=== PATIENT | male | born 1955 | race Caucasian/White ===

== ENCOUNTER 2019-06-14 04:44 | Inpatient (IN) ==
--- NOTE | 2019-05-26 16:14 | PAT Medication Instructions ---
Medication Instructions Date of Service May 26, 2019 Home Medications cholecalciferol (vitamin D3) [Vitamin D3] 5,000 unit PO DAILY meloxicam 15 mg PO QDL multivitamin 1 cap PO DAILY omeprazole 20 mg PO QDL ASK your surgeon for instructions meloxicam 15 mg PO QDL DO NOT take the morning of surgery cholecalciferol (vitamin D3) [Vitamin D3] 5,000 unit PO DAILY multivitamin 1 cap PO DAILY Take morning of surgery With a small sip of water, OTHERWISE NOTHING TO EAT OR DRINK AFTER MIDNIGHT: omeprazole 20 mg PO QDL Other Notes If you have any questions please call us at [phone] or [phone] or [phone] or [phone]
--- NOTE | 2019-05-27 13:30 | Anesthesiology Consultation ---
Date of Service May 27, 2019 Assessment & Plan (1) Encounter for pre-operative examination: Chart Review Chart Review: Pending: Refer to Additional Notes / Consult section (CXR, labs) and Patient seen in Pre Admission Testing Consults Requested none History Surgery Operation Date: 06/14/19 07:00 Proposed Procedures p Left Anterior Total Hip Arthroplasty - Jose Nicolas DO Height/Weight Height: 6 ft Weight: 117.5 kg Allergies Allergy/AdvReac Type Severity Reaction Status Date / Time No Known Allergies Allergy Verified 05/19/19 10:47 Medications Home Medications Medication Instructions Recorded Confirmed Last Taken cholecalciferol (vitamin D3) 5,000 unit PO DAILY 05/19/19 05/19/19 Unknown [Vitamin D3] meloxicam 15 mg PO QDL 05/19/19 05/19/19 Unknown multivitamin 1 cap PO DAILY 05/19/19 05/19/19 Unknown omeprazole 20 mg PO QDL 05/19/19 05/19/19 Unknown Past Medical History Medical History Acid reflux Borderline high cholesterol History of ulcerative colitis Snores Past Family History Family History Mother Family history of diabetes mellitus (DM) Past Surgical History Surgical History History of colonoscopy History of eye surgery EYE SOCKET REPLACED, R Social History Smoking Status: Never smoker Do You Dip or Chew Tobacco: No (HX OF , NONE CURRENT) Alcohol type: beer Hx Substance Use: No substance use type: does not use Physical Exam Vital Signs Last Vital Signs Temp 36.7 C 05/27/19 12:49 Pulse 73 05/27/19 12:49 Resp 18 05/27/19 12:49 BP 144/85 H 05/27/19 12:49 Pulse Ox 95 05/27/19 12:49 Testing Electrocardiogram Date: 05/27/19 Findings: + NSR @ (74)
--- NOTE | 2019-05-27 13:45 | XRay Report ---
XR chest Pre-admission PA/Lat HISTORY: Preop. COMPARISON: None. FINDINGS: The lungs are clear. Cardiac silhouette is normal in size. No pleural effusions. No pneumot horax. IMPRESSION: No acute process. Electronically signed by: Raciel Vázquez M.D. 05/27/2019 1:43 PM
[2019-05-27 13:53] LABS: Basophils # (auto) 0.04 K/uL (0-0.2); Basophils % (auto) 0.8 %; Eosinophils # (auto) 0.15 K/uL (0-0.5); Hematocrit (blood only) 42.3 % (42-52); Hemoglobin 14.4 g/dL (14.0-18.0); Immature Granulocytes # (auto) 0.01 K/uL (0.00-0.02); Immature Granulocytes % (auto) 0.2 %; Lymphocytes # (auto) 1.46 K/uL (1.2-3.4); Lymphocytes % (auto) 29.3 %; Mean Corpuscular Hemoglobin 29.8 pg (25-34); Mean Corpuscular Volume 87.4 fL (80-100); Mean Platelet Volume 10.6 fL (7.4-10.4); Monocytes # (auto) 0.41 K/uL (0.11-0.59); Monocytes % (auto) 8.2 %; Neutrophils # (auto) 2.92 K/uL (1.4-6.5); Neutrophils % (auto) 58.5 %; Platelet Count 200 K/uL (130-400); RDW Coefficient of Variation 13.5 % (11.5-14.5); RDW Standard Deviation 42.9 fL (36.4-46.3); Red Blood Count 4.84 M/uL (4.7-6.1); White Blood Count 4.99 K/uL (4.8-10.8)
[2019-05-27 14:10] LABS: Partial Thromboplastin Ratio 0.9; Partial Thromboplastin Time 25.4 Seconds (21.0-31.0); Prothrombin Time 10.3 Seconds (9.0-12.0)
[2019-05-27 14:15] LABS: Appearance Urine Clear (Clear); Bilirubin Urine Negative (Negative); Blood Urine Negative (Negative); Color Urine Dark Yellow; Glucose Urine UA Negative (Negative); Ketones Urine Trace (Negative); Leukocyte Esterase Urine Negative (Negative); Nitrite Urine Negative (Negative); Protein Urine Negative (Negative); Specific Gravity Urine 1.027 (1.000-1.030); Urobilinogen Urine Negative (Negative); pH Urine 6.5 (4.5-7.5)
[2019-05-27 14:20] LABS: Estimated Average Glucose 157 mg/dl; Hemoglobin A1C 7.1 % (4.5-5.6)
[2019-05-27 14:30] LABS: Albumin Level 4.1 gm/dl (3.4-5.0); BUN Creatinine Ratio 24.5 (10-20); Calcium 8.9 mg/dl (8.5-10.1); Creatinine Clr Calc Pharmacy 96.8 ml/min; Est GFR (African American) 87.4; Est GFR (Non-African American) 75.4; Potassium 4.1 mmol/L (3.5-5.1)
--- NOTE | 2019-05-28 12:46 | Anesthesiology Consultation ---
Date of Service May 28, 2019 Assessment & Plan Chart Review Chart Review: Acceptable Risk for Surgery Consults Requested none History Surgery Operation Date: 06/14/19 07:00 Proposed Procedures p Left Anterior Total Hip Arthroplasty - Jose Nicolas DO Height/Weight Height: 6 ft Weight: 117.5 kg Allergies Allergy/AdvReac Type Severity Reaction Status Date / Time No Known Allergies Allergy Verified 05/19/19 10:47 Medications Home Medications Medication Instructions Recorded Confirmed Last Taken cholecalciferol (vitamin D3) 5,000 unit PO DAILY 05/19/19 05/19/19 Unknown [Vitamin D3] meloxicam 15 mg PO QDL 05/19/19 05/19/19 Unknown multivitamin 1 cap PO DAILY 05/19/19 05/19/19 Unknown omeprazole 20 mg PO QDL 05/19/19 05/19/19 Unknown Past Medical History Medical History Acid reflux Borderline high cholesterol History of ulcerative colitis Snores Past Family History Family History Mother Family history of diabetes mellitus (DM) Past Surgical History Surgical History History of colonoscopy History of eye surgery EYE SOCKET REPLACED, R Social History Smoking Status: Never smoker Do You Dip or Chew Tobacco: No (HX OF , NONE CURRENT) Alcohol type: beer Hx Substance Use: No substance use type: does not use Physical Exam Vital Signs Last Vital Signs Temp 36.7 C 05/27/19 12:49 Pulse 73 05/27/19 12:49 Resp 18 05/27/19 12:49 BP 144/85 H 05/27/19 12:49 Pulse Ox 95 05/27/19 12:49 Testing Laboratory Results 05/27/19 12:57 05/27/19 12:57 PT 10.3 Seconds (9.0-12.0) 05/27/19 12:57 INR 1.0 (0.9-1.1) 05/27/19 12:57 APTT 25.4 Seconds (21.0-31.0) 05/27/19 12:57 Hemoglobin A1c 7.1 % (4.5-5.6) H 05/27/19 12:57 Urine Color Dark Yellow 05/27/19 12:57 Urine Appearance Clear (Clear) 05/27/19 12:57 Urine pH 6.5 (4.5-7.5) 05/27/19 12:57 Ur Specific [place] 1.027 (1.000-1.030) 05/27/19 12:57 Urine Protein Negative (Negative) 05/27/19 12:57 Urine Glucose (UA) Negative (Negative) 05/27/19 12:57 Urine Ketones Trace (Negative) H 05/27/19 12:57 Urine Nitrite Negative (Negative) 05/27/19 12:57 Ur Leukocyte Esterase Negative (Negative) 05/27/19 12:57 Blood Type A Positive 05/27/19 12:57 Antibody Screen NEGATIVE 05/27/19 12:57 05/27/19 12:57 Urine Culture - Preliminary Urine,Clean Catch Pin-point growth present, reincubating. Electrocardiogram Date: 05/27/19 Findings: + NSR @ (74/min) Chest X-Ray Date: 05/27/19 Findings: + NAD
--- NOTE | 2019-06-13 10:20 | History & Physical Report ---
Date of Service June 13, 2019 Assessment & Plan (1) Degenerative joint disease of left hip: I have indicated the patient for left anterior total hip replacement. The risks, benefits and complications of surgery were explained to the patient which include but not limited to infection, acute blood loss, DVT/PE, injury to nerves, vessels, bone, soft tissue, arthrofibrosis, chronic pain, failure of the prosthesis, hip dislocation, leg length discrepancy, need for additional surgery, cardiac and pulmonary events and . The patient wished to proceed with surgery and informed consent was obtained at this time. We will plan for ASA 81mg BID post-operatively for DVT prophylaxis. Upon discharge the patient will be discharged home with home health services. Appropriate clearances by PCP were obtained. History of Present Illness Chief Complaint: Left hip pain/djd Primary Care Provider: Juarez Gates MD The patient is a 63 year old male who presents with complaints of severe left hip pain and DJD. The patient has failed outpatient conservative treatments to this point which included NSAIDs, IA hip injections, home exercise/walking program. The patient's pain and limited function have progressed to the point where they severely hinder their activities of daily living and they no longer tolerate exercise programs. They are requesting to proceed with total hip replacement surgery. Allergies Allergy/AdvReac Type Severity Reaction Status Date / Time No Known Allergies Allergy Verified 06/14/19 05:39 Home Medications Home Medications Medication Instructions Recorded Confirmed Type cholecalciferol (vitamin D3) 5,000 unit PO DAILY 05/19/19 06/14/19 History [Vitamin D3] meloxicam [Mobic] 15 mg PO QDL 05/19/19 06/14/19 History multivitamin 1 cap PO DAILY 05/19/19 06/14/19 History omeprazole 20 mg PO QDL 05/19/19 06/14/19 History Past Med/Surg History Medical History Acid reflux Borderline high cholesterol History of ulcerative colitis Snores Surgical History History of colonoscopy History of eye surgery EYE SOCKET REPLACED, R Family History Mother Family history of diabetes mellitus (DM) Social History Preferred Language: Chadian Communication Ability: Effective Pit Inspector Required: No Beliefs That Will Affect Care: None Current Living Situation: Spouse Other Information That Helps Us Care for You: No Feels Safe at Home: Yes Smoking Status: Never smoker Do You Dip or Chew Tobacco: No (HX OF , NONE CURRENT) ; Hx Substance Use: No Review of Systems Review of Systems: All systems reviewed & are unremarkable except as noted in HPI & below Constitutional: as per Subjective / HPI Physical Exam Physical Exam: LLE NVSI +EHL/FHL/TA/GS SILT grossly, +2 DP pulse, compartments soft NT, limited painful ROM of the hip, antalgic gait. Constitutional: WD/WN, vitals as above Eyes: PERRL, conjunctivae normal, anicteric sclerae ENMT: external ear and nose normal, oropharynx normal Neck: trachea midline, no thyromegaly Respiratory: normal respiratory effort, lungs clear to auscultation Cardiovascular: RRR, no murmur, no edema Gastrointestinal (Abdomen): normal bowel sounds, soft, nontender, no hepatosplenomegaly Musculoskeletal: no cyanosis or clubbing, extremities motor strength 5/5 Skin: no rashes, warm and dry Neurologic: patellar DTR's 2+ bilat, sensation intact Psychiatric: A+Ox3, euthymic affect Lymphatic: no cervical or axillary lymphadenopathy Results & Data Diagnostic Findings Multiple views of the hip demonstrates severe DJD with complete loss of the joint space. +osteophytes, +sclerosis, +subchondral cysts.
[2019-06-14] MEDS: LR 500ML BOLUS, THEN 15ML/HR IV SCH (05:45)
[2019-06-14] MEDS ORDERED: dexAMETHasone 4 MG TAB PO SCH (06:00)
[2019-06-14] MEDS ORDERED: FAMOTIDINE 20 MG TAB PO SCH (06:00)
[2019-06-14] MEDS ORDERED: METOCLOPRAMIDE HCL 10 MG TABLET PO SCH (06:00)
[2019-06-14] MEDS ORDERED: CEFAZOLIN 2000MG 2,000 MG/15 ML SYR IV SCH (06:00)
[2019-06-14] MEDS ORDERED: ROPIVACAINE 0.5% HCL/PF 150 MG, BUPIVACAINE 0.5% MPF 30 ML, EPINEPHrine 30MG/30ML (OR U... INSTIL SCH (06:00)
[2019-06-14] MEDS ORDERED: CeleBREX 200 MG CAP PO SCH (06:00)
[2019-06-14] MEDS ORDERED: TRANEXAMIC ACID 1,000 MG **IV Pre-op IV SCH (06:00)
[2019-06-14] MEDS ORDERED: LR 15ML/HR IV SCH (06:00)
[2019-06-14] MEDS ORDERED: ACETAMINOPHEN 500 MG TAB PO SCH (06:00)
[2019-06-14] MEDS ORDERED: TRANEXAMIC ACID 1,000 MG **IV Intra-op IV SCH (06:30)
[2019-06-14] MEDS ORDERED: BUPIVACAINE 0.5 % 5 MG/1 ML PF 10ML VIAL ONE (06:33)
[2019-06-14] MEDS ORDERED: fentaNYL citrate 100 MCG/2 ML VIAL ONE (06:33)
[2019-06-14] MEDS ORDERED: MIDAZOLAM HCL 1 MG/ML 2ML VIAL ONE ×2 (06:33→08:04)
[2019-06-14] MEDS ORDERED: BACITRACIN INJ 50,000 UNIT VIAL ONE (06:41)
[2019-06-14] MEDS ORDERED: ORTHO JOINT ANESTHETIC ONE (06:41)
--- NOTE | 2019-06-14 06:51 | History & Physical Bridge Note ---
Date of Service June 14, 2019 History & Physical Bridge Note I have examined the patient, reviewed the History & Physical and in the interval since the performance of the History & Physical I have noted the following changes of clinical significance: no changes noted
[2019-06-14] MEDS ORDERED: PROPOFOL IV EMULSION 10 MG/ML 20 ML VIAL IV ONE ×3 (07:18→08:33)
[2019-06-14] MEDS ORDERED: ePHEDrine sulfate 50 MG/ML SYR ONE (07:18)
[2019-06-14] MEDS ORDERED: KETAMINE HCL INJ 50 MG/ML 10 ML VIAL ONE ×2 (08:03→08:32)
[2019-06-14] MEDS ORDERED: ONDANSETRON INJ 2 MG/ML 2 ML VIAL ONE (08:25)
--- NOTE | 2019-06-14 08:52 | Post Operative Brief Note ---
Immediate Post Op Note v1 Date of Surgery June 14, 2019 Pre & Post Diagnosis Operation Date: 06/14/19 07:00 Pre-Op Diagnosis: Unilateral Primary Osteoarthritis, Left Hip Post-Op Diagnosis: Unilateral Primary Osteoarthritis, Left Hip I identified the patient and participated in the time-out.: Yes Procedure Operation Date: 06/14/19 07:00 Actual Procedures p Left Anterior Total Hip Arthroplasty(Left) - Jose Nicolas DO Surgeon Jose Nicolas DO Coater [employer] Paper Simba Lindsay Estimated Blood Loss 225 Findings Consistent with Post-Op Diagnosis Fluids 800 cc LR Specimens femoral head Anesthesia Type Spinal MAC Complications none Disposition Disposition: Recovery Room Overlapping Procedure I was present for: the critical portions of procedure. I was immediately available: during the entire case. Back up surgeon: was not required during procedure.
--- NOTE | 2019-06-14 09:20 | Operative Report ---
Post Operative Report Pre & Post Diagnosis Operation Date: 06/14/19 07:00 Pre-Op Diagnosis: Unilateral Primary Osteoarthritis, Left Hip Post-Op Diagnosis: Unilateral Primary Osteoarthritis, Left Hip I identified the patient and participated in the time-out.: Yes Procedure Operation Date: 06/14/19 07:00 Actual Procedures p Left Anterior Total Hip Arthroplasty(Left) - Jose Nicolas DO Surgeon Jose Nicolas DO Stave Bolt Equalizer Simba Lindsay Estimated Blood Loss 225 Findings Consistent with Post-Op Diagnosis Fluids 800 cc LR Specimens femoral head Anesthesia Type Spinal MAC Complications none Disposition Disposition: Recovery Room Indications The patient is a 63-year-old male who presents with severe progressive left hip DJD who has failed outpatient conservative treatments. I indicated the patient for a anterior total hip replacement and the risks and benefits were explained in detail which include but not limited to infection, bleeding, blood clot, damage to surrounding bone, nerves, vessels, soft tissue, hip dislocation, failure of the prosthesis, leg length discrepancy, need for additional surgery and . The patient agreed to proceed with replacement of the hip and informed consent was obtained. Appropriate clearances were obtained. Description of Procedure COMPONENTS USED: [place] & NephFliqqology hip system: Acetabulum size 58, femur size 8 high offset, femoral head 36+4, liner 3658, acetabular screw 25 mm x 1. DESCRIPTION OF PROCEDURE: Following satisfactory spinal anesthesia, the patient was placed supine on the OR table. The right leg was placed in the well leg silvestre and the left leg in the traction device. The left leg was prepared with ChloraPrep and draped sterilely. A surgical timeout was performed, patient identified and site soham verified. Appropriate antibiotics were given. A standard anterior approach in the interval between the sartorius and tensor muscles was performed. Dissection was carried down through subcutaneous tissues. Electrocautery was utilized for hemostasis. Circumflex femoral vessels were identified, tied and ligated. The anterior capsular fat pad was removed and the capsulotomy was performed revealing the arthritic femoral neck and head. A femoral neck cut was made with reciprocating saw and the bone fragments removed. The acetabular self-retraining retractor was placed. Acetabular reaming was completed under fluoroscopic guidance, a 58 shell was impacted into an anatomic position and secured with a dome screw. Local anesthetic was placed and following irrigation, the polyethylene liner was placed. The femur was placed into position of external rotation, extension and adduction. Femoral canal was prepared up to the size 8 high offset. Trial reduction with a +4 neck length head showed good soft tissue tension, leg lengths restored, and good fit and fill of the proximal canal using fluoroscopic landmarks. The hip was dislocated. The trial component was removed. The final implant was placed. The hip was irrigated with sterile saline solution and reduced. A Betadine soak was performed. After 3 minutes, the hip was once more irrigated with copious sterile saline solution with bacitracin. Indu-incisional soft tissue was injected utilizing [place] [employer] which includes a combination of Ropivicaine 0.5% 150mg, Bupivicaine 0.5%/Epinephrine 1:200,000 30ml, Toradol 30mg, Dexamethasone 4mg, Ketamine 10mg, Clonidine 100mcg and NSS 30ml solution. The capsule was then closed with 1-0 Vicryl interrupted figure of eight sutures. The fascia was closed with a running suture of #1 Vicryl, the subcutaneous tissues with 2-0 Vicryl and the skin was closed with jermaine. A dry sterile dressing was applied which included Praven[place] incisional VAC. The patient tolerated the procedure well and was transported to PACU in stable condition. Due to the complex nature of the procedure, the entire surgery was performed with the operational assistance of Simba Lindsay PA-C. The research assistant member, under direct supervision, was involved in the actual performance of all aspects of the surgical procedure including patient positioning, hemostasis, tissue retraction, instrument management and wound closure. I attest to the content of the Intraoperative Record and any orders documented therein. Any exceptions are noted below.
[2019-06-14] MEDS ORDERED: NovoLIN-R INSULIN PER UNIT CHARGE ONE (09:29)
--- NOTE | 2019-06-14 09:30 | Fluoroscopy Report ---
FL hip LT 1V HISTORY: 63 years-old Male LEFT ANTERIOR HP left hip total joint arthroplasty COMPARISON: None available TECHNIQUE: 2 spot fluoroscopic images of the left hip were obtained utilizing 1 minute and 4.8 second s fluoroscopy time FINDINGS: Left hip total joint arthroplasty appears to be in satisfactory positioning. No acute fracture identi fied. Right hip osteoarthritis is partially imaged. IMPRESSION: Fluoroscopic assistance as above. Please see operative report for further details. The above report was generated using voice recognition software. It may contain grammatical, syntax o r spelling errors. Electronically signed by: Jose Rankin M.D. 06/14/2019 9:29 AM
[2019-06-14] MEDS ORDERED: ATROPINE SULFATE 0.1 MG/ML 10ML SYR IV PRN (09:34)
[2019-06-14] MEDS ORDERED: ePHEDrine sulfate 50 MG/ML AMP IV PRN (09:34)
[2019-06-14] MEDS ORDERED: NovoLIN-R INSULIN PER UNIT CHARGE IV STA (09:34)
--- NOTE | 2019-06-14 10:19 | XRay Report ---
XR hip 1V LT w pelvis CLINICAL HISTORY: IN PACU - A/P PELVIS and LATERAL HIP COMPARISON: None. DISCUSSION: Anatomic alignment posttotal left hip arthroplasty. Could contact between prosthetic and underlying bone. Expected postoperative soft tissue change. IMPRESSION: Anatomic alignment posttotal left hip arthroplasty. The above report was generated using voice recognition software. It may contain grammatical, syntax or spelling errors. Electronically signed by: Chino Donnelly M.D. 06/14/2019 10:18 AM
--- NOTE | 2019-06-14 10:20 | Anesthesiology Progress Note ---
Date of Service June 14, 2019 Anesthesia Post Procedure Vital Signs Vital Signs: Temp Pulse Pulse Resp BP Pulse Ox 06/14/19 10:06 84 16 106/62 96 06/14/19 09:55 84 16 99/56 L 96 06/14/19 09:45 79 12 108/66 100 06/14/19 09:35 78 11 L 125/66 100 06/14/19 09:25 73 19 118/60 100 06/14/19 09:18 36.2 C L 81 17 98/63 L 95 06/14/19 05:15 36.6 C 74 18 156/94 H 95 Transfer of Care Handoff Completed per policy Notes Mental Status: alert / awake / arousable Patient Amnestic to Procedure: Yes Nausea / Vomiting: adequately controlled Pain: adequately controlled Airway Patency, RR, SpO2: stable & adequate BP & HR: stable & adequate Hydration State: stable & adequate Neuraxial Anesthesia: was administered and sensory block is resolving Anesthetic Complications: no major complications apparent
[2019-06-14] MEDS ORDERED: OXYCODONE HCL IR 5 MG TAB (IMMEDIATE RELEASE) PO PRN (10:43)
[2019-06-14] MEDS ORDERED: ONDANSETRON INJ 2 MG/ML 2 ML VIAL IV PRN (10:43)
[2019-06-14] MEDS ORDERED: bisacodyL 10 MG SUPP PR PRN (10:43)
[2019-06-14] MEDS ORDERED: HYDROmorphone INJ 0.5 MG/0.5 ML SYR IV PRN (10:43)
[2019-06-14] MEDS ORDERED: SODIUM CHLORIDE 0.9% 1000ML 1,000 ML IV SCH (10:43)
[2019-06-14] MEDS ORDERED: MAGNESIUM HYDROXIDE SUSP 30 ML UDC PO PRN (10:43)
[2019-06-14] MEDS ORDERED: NALOXONE HCL 0.4 MG/1 ML VIAL/CARP IV PRN (10:43)
[2019-06-14] MEDS ORDERED: METOCLOPRAMIDE HCL INJ 5 MG/ML 2 ML VIAL IV PRN (10:43)
[2019-06-14] MEDS ORDERED: PHARMACY GLYCEMIC MGMT CONSULT PRN (11:13)
[2019-06-14] MEDS ORDERED: GLUCOSE 10 TABS/TUBE PO PRN (11:15)
[2019-06-14] MEDS ORDERED: CARBOHYDRATES FOR HYPOGLYCEMIA PO PRN (11:15)
[2019-06-14] MEDS ORDERED: DEXTROSE 50% 50 ML SYRINGE IV PRN (11:15)
[2019-06-14] MEDS ORDERED: GLUCOSE 40% GEL 15 GM TUBE PO PRN (11:15)
[2019-06-14] MEDS ORDERED: GLUCAGON FOR INJ 1 MG VIAL IM PRN (11:15)
--- NOTE | 2019-06-14 11:26 | Pharmacy Report ---
Glycemic Control Consultation - Date of Service June 14, 2019 - Scope Scope: Glycemic Pharmacist consulted for glycemic control and to write orders per [facility] inpatient glycemic control protocol - Objective Weight: 116.3 kg Accuchecks BSG (last 24hrs): 06/14/19 06/14/19 09:22 10:02 POC Glucose 221 H 203 H HbA1c: Hemoglobin A1c 7.1 % (4.5-5.6) H 05/27/19 12:57 - Recent Pertinent Medications Outpatient Anti-diabetic Regimen: * N/A {diet controlled?} Risk Factors for Insulin Resistance: * Steroids * Recent Surgery * Diet - Assessment & Plan Assessment & Plan: ASSESSMENT: * 63yo male with diabetes per A1c. * HbA1c of 6.5% or greater indicates "diagnosis of diabetes" --> ADA recommendation is to "Treat Diabetes" * Pt with post op hyperglycemia most likely related to stress of surgery and Dexamethasone received pre-op * Aggressive therapy needed until effects of dexamethasone diminished (likely 24-48hrs) * NPH insulin is used to counteract the hyperglycemic effect of once time steroids. The rationale for this approach is that the pharmacodynamics profile of NPH, mirrors the pharmacodynamics of once daily steroids * The dose of NPH given is dependent on the steroid dose given * For doses of prednisone 40mg/day or above --> NPH dose should be 0.4 units/kg (will use slightly lower dose based on elevated BMI) * NPH dosing above is given in addition to patients basal insulin needs * Typically, patients will also need rapid-acting insulin with meals * Goal is to maintain BSGs <200 mg/dl (ideally <150 mg/dl) to prevent post op complications PLAN FOR INPATIENT GLYCEMIC CONTROL: * Steroid induced hyperglycemia insulin * NPH 30 units SQ x 1 dose * Bolus insulin * NovoLog per scale ACHS or Q6hrs while NPO * Goal Range: Low 110 mg/dL - High 140 mg/dL * Correction Factor: 20 mg/dL/unit * Nutritional / Prandial insulin per carb ratio of 1 unit per 7 grams CHO consumed * Please note that the plan above was derived based on current level of insulin resistance and hospital stress. These recommendations are appropriate for inpatient admission only. Plan of care upon discharge will need to be reassessed to avoid potential outpatient hypo/hyperglycemia. Thank you.
[2019-06-14] MEDS ORDERED: NovoLIN-N (NPH) PER UNIT CHARGE SQ ONE (11:30)
[2019-06-14] MEDS: KETOROLAC TROMETHAMINE 15 MG/ML VIAL IV SCH ×2 (12:25→17:36)
[2019-06-14] MEDS: PANTOprazole 40 MG TAB PO SCH (13:29)
[2019-06-14] MEDS: ACETAMINOPHEN 500 MG TAB PO SCH ×2 (13:32→20:49)
[2019-06-14] MEDS: INSULIN ASPART 100 UNITS/ML 3 ML PEN SC SCH ×3 (13:33→20:50)
--- NOTE | 2019-06-14 14:43 | Orthopedic Progress Note ---
Date of Service June 14, 2019 Assessment & Plan (1) Degenerative joint disease of left hip: Status post left anterior TAMRA -Ancef x24 -DVT prophylaxis: SCDs, teds, ASA 81 mg twice daily -Weight-bear as tolerates left lower extremity -PT/OT -Postoperative x-ray to be straight well aligned well fixed orthopedic prosthesis without evidence of fracture dislocation -A.m. labs -DC planning Subjective Post Operative Progress Note Patient seen sitting up in bed, comfortable, denies complaints, pain well controlled, no acute issues. Denies fevers, chills, nausea, vomiting, shortness of breath and chest pain. Review of Systems Review of Systems: All systems reviewed & are unremarkable except as noted in HPI & below Constitutional: as per Subjective / HPI Physical Exam Physical Exam: LLE NVSI +EHL/FHL/TA/GS SILT grossly, +2 DP pulse, compartments soft NT, dressing cdi. Constitutional: WD/WN, vitals as above Results & Data Vital Signs (Past 12 Hours) Vital Signs Temp Pulse Pulse Resp BP Pulse Ox 06/14/19 13:37 89 18 118/54 L 95 06/14/19 12:40 92 H 18 128/78 92 06/14/19 11:24 78 18 119/75 95 06/14/19 10:56 81 18 117/69 92 06/14/19 10:25 36.5 C 82 16 109/68 96 06/14/19 10:06 84 16 106/62 96 06/14/19 09:55 84 16 99/56 L 96 06/14/19 09:45 79 12 108/66 100 06/14/19 09:35 78 11 L 125/66 100 06/14/19 09:25 73 19 118/60 100 06/14/19 09:18 36.2 C L 81 17 98/63 L 95 06/14/19 05:15 36.6 C 74 18 156/94 H 95
[2019-06-14] MEDS: CEFAZOLIN 2000MG 2,000 MG/15 ML SYR IV SCH ×2 (15:08→22:10)
--- NOTE | 2019-06-14 16:43 | Hospitalist Consultation ---
Date of Consultation June 14, 2019 Assessment & Plan (1) Degenerative joint disease of left hip: POD #0 left total hip arthroplasty with Dr. Duran Pain control per ortho team Further surgical management per ortho (2) Elevated hemoglobin A1c: Patient told that he was pre-diabetic by PCP Will treat with insulin and with Novolog SSI Pharmacy consulted for glycemic control SSI reviewed and agree with parameters Out patient follow up with PCP (3) GERD (gastroesophageal reflux disease): No current complaints Famotidine while inpatient Discharge on home dose of omeprazole Thank you for including us in the care of this patient Please refer to Dr. Belle's addendum for further recommendations. History of Present Illness Attending Physician: Jose Nicolas DO History of Present Illness Attending: Dr. Dakota Belle This is a 63 yo male that is POD#0 S/P left hip arthroplasty. Random glucose was elevated and surgical team acquired HgB A1c which was mildly elevated at 7.1. Pharmacy was consulted for glycemic control and the hospitalist team was consulted for medical management. Patient is seen in bed post operatively and is in no distress. He denies history of diabetes but states that his PCP says that he was pre-diabetic. Patient has had some weight gain and poor diet over the past year secondary to sedentary activity due to hip pain. He is hopeful that with the hip replacement that he can be more active and focus on weight loss and diet. The patient states that his mother was diabetic but has no other significant family history. He denies vision changes, neuropathy, renal failure, change in bowel habits, polydipsia, hematuria. He has no other acute complaints. The patient has a history of DJD and GERD. He denies any other significant [facility] condition. He has no pulmonary, cardiac, or thrombotic disease. Allergies Allergy/AdvReac Type Severity Reaction Status Date / Time No Known Allergies Allergy Verified 06/14/19 05:39 Home Medications Home Medications Medication Instructions Recorded Confirmed Type cholecalciferol (vitamin D3) 5,000 unit PO DAILY 05/19/19 06/14/19 History [Vitamin D3] meloxicam [Mobic] 15 mg PO QDL 05/19/19 06/14/19 History multivitamin 1 cap PO DAILY 05/19/19 06/14/19 History omeprazole 20 mg PO QDL 05/19/19 06/14/19 History Patient History Medical History Acid reflux Borderline high cholesterol History of ulcerative colitis Snores Surgical History History of colonoscopy History of eye surgery EYE SOCKET REPLACED, R Family History Mother Family history of diabetes mellitus (DM) Social History Preferred Language: Sami Communication Ability: Effective [employer] Required: No Beliefs That Will Affect Care: None Current Living Situation: Spouse Other Information That Helps Us Care for You: No Feels Safe at Home: Yes Smoking Status: Never smoker Do You Dip or Chew Tobacco: No (HX OF , NONE CURRENT) ; Hx Substance Use: No Review of Systems Review of Systems: All systems reviewed & are unremarkable except as noted in HPI & below Physical Exam Constitutional: WD/WN, vitals as above no acute distress No acute distress. Pleasant Eyes: PERRL, conjunctivae normal, anicteric sclerae ENMT: Nose: no septum abnormality and no epistaxis Mouth: no oral mucosal abnormality Neck: trachea midline, no thyromegaly No appreciation of stridor or carotid bruits Respiratory: normal respiratory effort; no respiratory distress Auscultation: lungs clear to auscultation bilaterally Cardiovascular: Rate/Rhythm: regular rate and regular rhythm Heart Sounds: no murmur Musculoskeletal: Extremities: extremities normal to inspection Dressing dry and in place to surgical site Skin: no rashes, warm and dry Neurologic: A&OX3. Results & Data Vital Signs (Past 12 Hours) Vital Signs Temp Pulse Pulse Resp BP Pulse Ox 06/14/19 15:47 36.9 C 87 18 117/69 94 06/14/19 13:37 89 18 118/54 L 95 06/14/19 12:40 92 H 18 128/78 92 06/14/19 11:24 78 18 119/75 95 06/14/19 10:56 81 18 117/69 92 06/14/19 10:25 36.5 C 82 16 109/68 96 06/14/19 10:06 84 16 106/62 96 06/14/19 09:55 84 16 99/56 L 96 06/14/19 09:45 79 12 108/66 100 06/14/19 09:35 78 11 L 125/66 100 06/14/19 09:25 73 19 118/60 100 06/14/19 09:18 36.2 C L 81 17 98/63 L 95 06/14/19 05:15 36.6 C 74 18 156/94 H 95 Laboratory Results 05/27/19 12:57 05/27/19 12:57 Diagnostic Findings XR hip 1V LT w pelvis CLINICAL HISTORY: IN PACU - A/P PELVIS and LATERAL HIP COMPARISON: None. DISCUSSION: Anatomic alignment posttotal left hip arthroplasty. Could contact between prosthetic and underlying bone. Expected postoperative soft tissue change. IMPRESSION: Anatomic alignment posttotal left hip arthroplasty. Electronically signed by: Chino Donnelly M.D. 06/14/2019 10:18 AM PG Care Time/CCT Total # of Minutes Spent Total Time Spent with Patient: Total time spent is greater than 50% in coordination of care (as documented) at patient's floor/unit and/or counseling patient: 40
[2019-06-14] MEDS: DOCUSATE SODIUM 100 MG CAP PO SCH (20:48)
[2019-06-14] MEDS ORDERED: ASPIRIN 81 MG ECTAB PO SCH (21:00)
[2019-06-14] MEDS ORDERED: SENNA 8.6 MG TAB PO SCH (21:00)
[2019-06-15] MEDS: KETOROLAC TROMETHAMINE 15 MG/ML VIAL IV SCH ×3 (00:07→11:37)
[2019-06-15] MEDS: INSULIN ASPART 100 UNITS/ML 3 ML PEN SC SCH ×4 (00:15→12:40)
[2019-06-15] MEDS: LR 500ML BOLUS, THEN 15ML/HR IV SCH (03:30)
[2019-06-15 05:13] LABS: Basophils # (auto) 0.01 K/uL (0-0.2); Basophils % (auto) 0.1 %; Eosinophils # (auto) 0.01 K/uL (0-0.5); Eosinophils % (auto) 0.1 %; Hematocrit (blood only) 34.8 % (42-52); Hemoglobin 11.9 g/dL (14.0-18.0); Immature Granulocytes # (auto) 0.02 K/uL (0.00-0.02); Immature Granulocytes % (auto) 0.2 %; Lymphocytes # (auto) 1.64 K/uL (1.2-3.4); Lymphocytes % (auto) 14.7 %; Mean Corpuscular Hemoglobin 29.8 pg (25-34); Mean Corpuscular Hgb Conc 34.2 g/dL (32-36); Mean Corpuscular Volume 87.2 fL (80-100); Monocytes # (auto) 1.21 K/uL (0.11-0.59); Monocytes % (auto) 10.9 %; Neutrophils # (auto) 8.26 K/uL (1.4-6.5); Platelet Count 209 K/uL (130-400); RDW Coefficient of Variation 13.2 % (11.5-14.5); RDW Standard Deviation 42.3 fL (36.4-46.3); Red Blood Count 3.99 M/uL (4.7-6.1); White Blood Count 11.15 K/uL (4.8-10.8)
[2019-06-15 05:40] LABS: BUN Creatinine Ratio 30.5 (10-20); Calcium 8.5 mg/dl (8.5-10.1); Creatinine Clr Calc Pharmacy 108.2 ml/min; Est GFR (African American) 102.3; Est GFR (Non-African American) 88.3; Potassium 3.8 mmol/L (3.5-5.1)
[2019-06-15] MEDS: ACETAMINOPHEN 500 MG TAB PO SCH ×2 (06:14→14:00)
[2019-06-15] MEDS: PANTOprazole 40 MG TAB PO SCH (08:43)
[2019-06-15] MEDS: DOCUSATE SODIUM 100 MG CAP PO SCH (08:43)
[2019-06-15] MEDS ORDERED: MULTIVITAMIN TAB PO SCH (09:00)
--- NOTE | 2019-06-15 10:45 | Orthopedic Progress Note ---
Date of Service June 15, 2019 Assessment & Plan (1) Degenerative joint disease of left hip: Status post left anterior TAMRA POD#1 -Ancef x24 -DVT prophylaxis: SCDs, teds, ASA 81 mg twice daily -Weight-bear as tolerates left lower extremity -PT/OT -Postoperative x-ray to be straight well aligned well fixed orthopedic prosthesis without evidence of fracture dislocation -A.m. labs - hgb 11.9 -DC planning Subjective Post Operative Progress Note Patient seen ambulating in room, comfortable, denies complaints, pain well controlled, no acute issues. Denies fevers, chills, nausea, vomiting, shortness of breath and chest pain. Review of Systems Review of Systems: All systems reviewed & are unremarkable except as noted in HPI & below Constitutional: as per Subjective / HPI Physical Exam Physical Exam: LLE NVSI +EHL/FHL/TA/GS SILT grossly, +2 DP pulse, compartments soft NT, dressing cdi. Constitutional: WD/WN, vitals as above Results & Data Vital Signs (Past 12 Hours) Vital Signs Temp Pulse Resp BP Pulse Ox 06/15/19 07:15 36.7 C 71 18 122/75 94 06/15/19 03:35 36.6 C 75 18 128/75 96 06/14/19 23:20 36.6 C 75 18 123/71 97 Laboratory Results 06/15/19 06/15/19 06/15/19 Range/Units 07:57 04:48 04:48 WBC (4.8-10.8) K/uL RBC (4.7-6.1) M/uL Hgb (14.0-18.0) g/dL Hct (42-52) % MCV (80-100) fL MCH (25-34) pg MCHC (32-36) g/dL RDW Std Deviation (36.4-46.3) fL RDW Coeff of Lynnette (11.5-14.5) % Plt Count (130-400) K/uL MPV (7.4-10.4) fL Immature Gran % (Auto) % Neut % (Auto) % Lymph % (Auto) % [place] % (Auto) % Eos % (Auto) % Baso % (Auto) % Immature Gran # (Auto) (0.00-0.02) K/uL Neut # (Auto) (1.4-6.5) K/uL Lymph # (Auto) (1.2-3.4) K/uL [place] # (Auto) (0.11-0.59) K/uL Eos # (Auto) (0-0.5) K/uL Baso # (Auto) (0-0.2) K/uL Sodium 140 (136-145) mmol/L Potassium 3.8 (3.5-5.1) mmol/L Chloride 108 H (98-107) mmol/L Carbon Dioxide 27 (21-32) mmol/L Anion Gap 5.0 (3-11) BUN 28 H (7-18) mg/dl Creatinine 0.93 (0.6-1.4) mg/dl Est Cr Clr Drug Dosing 108.2 ml/min Est GFR ( Amer) 102.3 Est GFR (Non-Af Amer) 88.3 BUN/Creatinine Ratio 30.5 H (10-20) Glucose 124 H (70-99) mg/dl POC Glucose 153 H (70-99) Calcium 8.5 (8.5-10.1) mg/dl Hepatitis C Ab Screen Neg (Neg) 06/15/19 06/15/19 06/15/19 Range/Units 04:48 03:33 00:05 WBC 11.15 H (4.8-10.8) K/uL RBC 3.99 L (4.7-6.1) M/uL Hgb 11.9 L (14.0-18.0) g/dL Hct 34.8 L (42-52) % MCV 87.2 (80-100) fL MCH 29.8 (25-34) pg MCHC 34.2 (32-36) g/dL RDW Std Deviation 42.3 (36.4-46.3) fL RDW Coeff of Lynnette 13.2 (11.5-14.5) % Plt Count 209 (130-400) K/uL MPV 10.0 (7.4-10.4) fL Immature Gran % (Auto) 0.2 % Neut % (Auto) 74.0 % Lymph % (Auto) 14.7 % [place] % (Auto) 10.9 % Eos % (Auto) 0.1 % Baso % (Auto) 0.1 % Immature Gran # (Auto) 0.02 (0.00-0.02) K/uL Neut # (Auto) 8.26 H (1.4-6.5) K/uL Lymph # (Auto) 1.64 (1.2-3.4) K/uL [place] # (Auto) 1.21 H (0.11-0.59) K/uL Eos # (Auto) 0.01 (0-0.5) K/uL Baso # (Auto) 0.01 (0-0.2) K/uL Sodium (136-145) mmol/L Potassium (3.5-5.1) mmol/L Chloride (98-107) mmol/L Carbon Dioxide (21-32) mmol/L Anion Gap (3-11) BUN (7-18) mg/dl Creatinine (0.6-1.4) mg/dl Est Cr Clr Drug Dosing ml/min Est GFR ( Amer) Est GFR (Non-Af Amer) BUN/Creatinine Ratio (10-20) Glucose (70-99) mg/dl POC Glucose 123 H 154 H (70-99) Calcium (8.5-10.1) mg/dl Hepatitis C Ab Screen (Neg) 06/14/19 06/14/19 06/14/19 Range/Units 20:50 17:01 11:41 WBC (4.8-10.8) K/uL RBC (4.7-6.1) M/uL Hgb (14.0-18.0) g/dL Hct (42-52) % MCV (80-100) fL MCH (25-34) pg MCHC (32-36) g/dL RDW Std Deviation (36.4-46.3) fL RDW Coeff of Lynnette (11.5-14.5) % Plt Count (130-400) K/uL MPV (7.4-10.4) fL Immature Gran % (Auto) % Neut % (Auto) % Lymph % (Auto) % [place] % (Auto) % Eos % (Auto) % Baso % (Auto) % Immature Gran # (Auto) (0.00-0.02) K/uL Neut # (Auto) (1.4-6.5) K/uL Lymph # (Auto) (1.2-3.4) K/uL [place] # (Auto) (0.11-0.59) K/uL Eos # (Auto) (0-0.5) K/uL Baso # (Auto) (0-0.2) K/uL Sodium (136-145) mmol/L Potassium (3.5-5.1) mmol/L Chloride (98-107) mmol/L Carbon Dioxide (21-32) mmol/L Anion Gap (3-11) BUN (7-18) mg/dl Creatinine (0.6-1.4) mg/dl Est Cr Clr Drug Dosing ml/min Est GFR ( Amer) Est GFR (Non-Af Amer) BUN/Creatinine Ratio (10-20) Glucose (70-99) mg/dl POC Glucose 176 H 217 H 212 H (70-99) Calcium (8.5-10.1) mg/dl Hepatitis C Ab Screen (Neg)
[2019-06-15] MEDS ORDERED: ASPIRIN 81 MG ECTAB PO SCH (21:00)
[2019-06-16] MEDS ORDERED: CeleBREX 200 MG CAP PO SCH (21:00)
--- NOTE | 2019-06-16 23:28 | Discharge Summary ---
Date of Service June 16, 2019 Admission HPI Per Admitting Provider The patient is a 63 year old male who presents with complaints of severe left hip pain and DJD. The patient has failed outpatient conservative treatments to this point which included NSAIDs, IA hip injections, home exercise/walking program. The patient's pain and limited function have progressed to the point where they severely hinder their activities of daily living and they no longer tolerate exercise programs. They are requesting to proceed with total hip replacement surgery. Principal Diagnosis Left anterior total hip replacement Discharge Exam LLE NVSI +EHL/FHL/TA/GS SILT grossly, +2 DP pulse, compartments soft NT, dressing cdi. Constitutional WD/WN, vitals as above Discharge Data Allergies Allergy/AdvReac Type Severity Reaction Status Date / Time No Known Allergies Allergy Verified 06/14/19 05:39 Consultations 06/14/19 09:36 Consult Hospitalist Routine 06/15/19 08:00 Consult Case Management - Discharge Planning Routine Procedures Performed Operation Date: 06/14/19 07:00 Actual Procedures p Left Anterior Total Hip Arthroplasty(Left) - Jose Nicolas DO Ordered Studies 06/14/19 07:00 FL fluoroscopy <1hr Routine FL hip LT 1V Routine Hospital Course (1) Degenerative joint disease of left hip: The patient is a 63 -year-old male who presents with long standing history of severe left hip DJD and failed outpatient conservative treatments including NSAIDs, bracing, injections and home walking/exercise program. The patient's symptoms have progressed to the point where it has been difficult to perform even normal activities of daily living. I indicated the patient for a left anterior total hip arthroplasty, the risks, benefits and complications of the procedure include but not limited to infection, bleeding, damage to bone, nerves, vessels, surrounding soft tissue, may develop blood clots, loss of function, leg length discrepancy, dislocation, failure of the components, loosening of the components, the need for additional surgery and . The patient wished to proceed with surgery at this time and informed consent was obtained. Hospital Course: On 06/14/19 the patient was taken to the operating room, adequate anesthesia administered and underwent a left anterior total hip arthroplasty. The patient tolerated the procedure well and was taken to the PACU in stable condition. Post-operatively the patient was started on a DVT ppx medication and given appropriate IV antibiotics. Consults were placed to medical hospitalist, physical therapy, occupational therapy and case management. On POD#1, the patient did well overnight and their pain was well controlled. Labs were drawn and the Hgb was 11.9. The patient progressed well with PT. Dressings were changed at this time and the incision was clean, dry and intact. The patients hospital stay was relatively uneventful and they were deemed stable by the orthopedic team and consultants to be discharged home with on 06/15/19. Discharge Instructions: Upon discharge the patient may weight bear as tolerates through their operative extremity. They were instructed to keep the incision clean and dry at all times. The patient may shower but should not submerge the incision, avoid bathing, pools and hot tubes. The patient was given a script for pain medication and should take as instructed. The patient was given a script for DVT ppx ASA 81mg BID and should take as directed. The patient was instructed to not drive or travel for long distances until cleared to do so. If the patient develops any symptoms of fevers, chills, nausea, vomiting, increased redness, swelling, pain or drainage from the surgical site, they should notify the office and/or proceed to the nearest emergency room. The patient should follow up in 10-14 days after surgery for their routine post-operative follow-up appointment and should call the office to confirm the date and time. Status post left anterior TAMRA POD#1 -Ancef x24 -DVT prophylaxis: SCDs, teds, ASA 81 mg twice daily -Weight-bear as tolerates left lower extremity -PT/OT -Postoperative x-ray to be straight well aligned well fixed orthopedic prosthesis without evidence of fracture dislocation -A.m. labs - hgb 11.9 -DC planning Total Time Total Time Spent Total Time Spent (In Minutes): 30 minutes Total Time Includes: Examination of the Patient, Discharge Planning, Medication Reconciliation and Communication With Other Providers Discharge Plan Discharge Items Patient Disposition: Home - Self-Care Reason For Visit: Unilateral Primary Osteoarthritis, Left Hip Discharge Diagnosis: Left anterior total hip replacement Condition on Discharge: Good Activity: Per Instructions section Lifting: Wait until after follow-up appointment Bathing: Keep incision dry Bathing Comment: No bathing, pools or hot tubs Sexual Activity: Wait until after follow-up appointment Exercise/Sports: Wait until after follow-up appointment Driving/Machine Use: No driving Weightbearing: Full weightbearing Non-emergency contact: Primary Care Provider and Surgeon Call non-emergency contact if: you have any medication questions, your symptoms worsen, your pain is not controlled, your pain is worsening, your pain is unusual for you, your pain is concerning for you, you have a fever, your t emperature is above 101, your wound has increased redness, your wound has increased drainage and your wound pain has increased Follow-up/Referrals: Juarez Gates MD [Primary Care Provider] - Diet: Regular Addtl Attending Provider Instructions: ACTIVITY RECOMMENDATIONS: SELF CARE INSTRUCTIONS AFTER TOTAL HIP REPLACEMENT : Direct Anterior Approach Until the incision and soft tissues around your hip have healed, there is a possibility that the hip prosthesis could dislocate. A. Hip flexion ( Up & Down out of chair or steps ) may be difficult. This is normal. B. Numbness in front of the thigh is also normal for a few weeks. C. Use hand rails when walking on stairs. D. Wear low heeled shoes with non-slip soles. E. Be sure that your floors are free of things that could trip you - throw rugs, electrical cords, small objects. Avoid wet and waxed floors, especially with crutches and canes. F. Try to walk several times a day with rest periods between. G. Continue with all the exercises taught to you in the hospital. Again, make walking a part of your daily routine. SPECIAL CARE INSTRUCTIONS: VERY IMPORTANT TO READ AND REVIEW A. You may still be at risk for phlebitis and blood clots. 1. Wear surgical stockings (SEDRICK hose) for 2 weeks after surgery to improve circulation and reduce swelling. 2. Take Aspirin 81mg twice daily for 4 weeks or as directed by your doctor. This is your blood thinner. 3. High risk patients may be prescribed a stronger blood thinner if necessary. 4. If you are on Coumadin normally, your family doctor/operations support representative should monitor your blood work. Expect a phone call the day of or the day after bloodwork is drawn to adjust your dosage. B. You must take antibiotics before having dental work, bladder, bowel and other surgery. Your doctor will provide you with a permanent card to carry describing precautions. C. Call [facility] if you have a fever, redness or swelling around the incision, cloudy drainage from incision, or sudden increase in pain in your hip, not relieved by your regular pain medication. D. Please call the office at if you have any concerns or questions about your operation or recovery. * YOU MAY SHOWER, NO TUB BATHS UNTIL CLEARED BY YOUR DOCTOR. - Keep an extra close eye on the top portion of your incision. Be sure to keep clean & dry. * WEAR SEDRICK HOSE 20 HOURS PER DAY FOR 2 WEEKS. * YOU MAY PROGRESS FROM A WALKER, TO A CANE, TO INDEPENDENT AT YOUR OWN PACE. * MOST PATIENTS WILL HAVE HOME NURSING FOR THERAPY. IF YOU DECIDE TO DO OUTPATIENT PHYSICAL THERAPY, PLEASE SCHEDULE THIS 3 TIMES PER WEEK. *PREVENA incisional vac is a special dressing covering your incision. This dressing provides a sterile dry environment while you are healing. The dressing is to be left in place for 7 days post-operatively. Your home nurse or surgeon will remove. If you develop any redness or blisters or have any questions notify your surgeon immediately. FOLLOW UP VISIT: If appointment is not already scheduled: Please call [facility] to make a follow-up appointment for 2 weeks after your surgery at . Please follow up with your PCP within 1 week. Pending Studies at Discharge: No Stand-Alone Forms: My [facility] [place], Opioid Pain Management Medications and DC Order Prescriptions: New oxycodone 5 mg Tablet 5 mg PO Q6H MDD 6 tabs PRN (Reason: pain) Qty: 30 RF: 0 celecoxib [Celebrex] 200 mg Capsule 200 mg PO BID PRN (Reason: pain) Qty: 28 RF: 0 aspirin [Ecotrin Low Strength] 81 mg Tablet,Delayed Release (Dr/Ec) 81 mg PO BID 28 Days Qty: 56 RF: 0 acetaminophen [Tylenol Extra Strength] 500 mg Tablet 1,000 mg PO Q8 PRN (Reason: pain) Qty: 90 RF: 0 sennosides [Senokot] 8.6 mg Tablet 17.2 mg PO HS PRN (Reason: constipation) Qty: 28 RF: 0 Continued omeprazole 20 mg Capsule,Delayed Release(Dr/Ec) 20 mg PO QDL RF: 0 multivitamin Capsule 1 cap PO DAILY RF: 0 cholecalciferol (vitamin D3) [Vitamin D3] 5,000 unit Tablet 5,000 unit PO DAILY RF: 0 Discontinued meloxicam [Mobic] 15 mg Tablet 15 mg PO QDL RF: 0 Discharge Orders: Discharge Order (Routine); Ordered 06/15/19 Ordered By: Jose Nicolas Admission Data Admit Date/Time: 06/14/19 09:20 Attending Provider: Jose Nicolas Admit Provider: Jose Nicolas Primary Care Provider: Juarez Gates Other Providers: Dakota Belle Other Interventions: Discharge Summary Assessment (RN) Last Done: 06/15/19 11:33 DC Date/Time DO NOT enter until pt leaves facility: 06/15/19 16:16
== END 2019-06-15 16:16 | disposition home or self-care (01) | DRG 470 ==
LOC: ASU 04:44 → 3E 09:20